=== PATIENT | female | born 1970 | race Caucasian/White ===

== ENCOUNTER 2018-10-28 17:59 | Emergency (ER) | payer BC ==
[~2018-10-28] VITALS: Ht 157.5 cm; Wt 69.9 kg
[2018-10-28 18:18] VITALS: BP 116/70
--- NOTE | 2018-10-28 18:22 | NUR ---
TO ER, FOR EVALUATION AND TREATMENT FOR POSSIBLE LICE INFESTATION
--- NOTE | 2018-10-28 20:11 | NUR ---
Patient discharged to home in stable condition. Written and verbal after care instructions given. Patient verbalizes understanding of instruction.Pt ambulatory with a steady gait. Homeless waiver signed by pt
== END 2018-10-28 20:12 | disposition home or self-care (01) ==
LOC: ER 18:08
DX: F15.10 Other stimulant abuse, uncomplicated (principal); F11.10 Opioid abuse, uncomplicated; F19.90 Other psychoactive substance use, unspecified, uncomplicated; F22 Delusional disorders; F41.9 Anxiety disorder, unspecified; F32.9 Major depressive disorder, single episode, unspecified; Z59.0 Homelessness

== ENCOUNTER 2019-12-16 16:48 | Emergency (ER) | payer BC ==
[~2019-12-16] VITALS: Ht 157.5 cm; Wt 49.9 kg
--- NOTE | 2019-12-16 17:01 | NUR ---
PT BIBA C/O COUGH W/ CONGESTION AND FEVER SINCE FRIDAY. 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 PT AAOX4, RESPIRATIONS EVEN AND UNLABORED ON RA W/ AND NOTED. PT CONNECTED TO THE MONITOR AND POX
--- NOTE | 2019-12-16 17:22 | NUR ---
XRAY AT BEDSIDE
[2019-12-16] MEDS ORDERED: ACETAMINOPHEN ES 500 MG TABLET ONE (17:27)
[2019-12-16] MEDS: IV NS 0.9% 1,000 ML BAG IV ONE (17:30)
[2019-12-16] MEDS: ACETAMINOPHEN ES 500 MG TABLET PO ONE (17:37)
--- NOTE | 2019-12-16 17:37 | NUR ---
MEDICAL UNDERWRITER AT BEDSIDE FOR BLOOD DRAW
--- NOTE | 2019-12-16 17:40 | NUR ---
PT UNABLE TO PROVIDE URINE AT THIS TIME. MADE AWARE
[2019-12-16 18:11] LABS: ALANINE AMINOTRANSFERASE 15 U/L (12-78); ALBUMIN 3.7 g/dL (3.4-5.0); ALCOHOL, BLOOD < 3 mg/dL (0-0); ALKALINE PHOSPHATASE 172 U/L (46-116); ASPARTATE AMINOTRANSFERASE 20 U/L (15-37); BILIRUBIN,DIRECT 0.2 mg/dL (0.0-0.2); BILIRUBIN,TOTAL 1.1 mg/dL (0.2-1.0); CALCIUM, SERUM 9.8 mg/dL (8.5-10.1); CARBON DIOXIDE 26 mmol/L (21-32); CHLORIDE 100 mmol/L (98-107); CREATININE 0.8 mg/dL (0.6-1.3); GLUCOSE 109 mg/dL (74-106); POTASSIUM 4.6 mmol/L (3.5-5.1); SODIUM SERUM 138 mmol/L (136-145); TOTAL PROTEIN, SERUM 9.6 g/dL (6.4-8.2); UREA NITROGEN, BLOOD 21 mg/dL (7-18)
[2019-12-16 18:37] LABS: BASOPHILS % (AUTO) 0.3 % (0.0-2.0); EOSINOPHILS % (AUTO) 0.3 % (0.0-6.0); HEMATOCRIT 36 % (33-45); HEMOGLOBIN 11.1 g/dL (11.5-14.8); LYMPHOCYTES # (AUTO) 0.8 /CMM (0.8-4.8); MEAN CORPUSCULAR HGB CONC 31 g/dl (31.0-36.0); MEAN CORPUSCULAR VOLUME 80 fL (82-100); MONOCYTES # (AUTO) 0.7 /CMM (0.1-1.30); MONOCYTES % (AUTO) 5.4 % (2.0-12.0); NEUTROPHILS # (AUTO) 11.2 /CMM (1.8-8.9); PLATELET COUNT (AUTO) 258 /CMM (150-450); RED BLOOD CELL COUNT(AUTO) 4.48 MIL/uL (4.0-5.2); WHITE BLOOD COUNT (AUTO) 12.7 K/uL (4.3-11.0)
[2019-12-16 19:36] VITALS: BP 127/84
--- NOTE | 2019-12-16 19:36 | NUR ---
Patient discharged to home in stable condition. Written and verbal after care instructions given. Patient verbalizes understanding of instruction.IV removed. Catheter intact and site benign. Pressure and 4x4 applied to site. No bleeding noted.
== END 2019-12-16 19:36 | disposition home or self-care (01) ==
LOC: ER 16:53
DX: B37.0 Candidal stomatitis (principal); F19.10 Other psychoactive substance abuse, uncomplicated; F41.9 Anxiety disorder, unspecified; F32.9 Major depressive disorder, single episode, unspecified; F17.200 Nicotine dependence, unspecified, uncomplicated
CPT/HCPCS: 71045; 80048; 80076; 80307; 85025; 96360; 99284; J7030; 36415; G0480

== ENCOUNTER 2019-12-17 16:27 | Emergency (ER) | payer BC ==
[~2019-12-17] VITALS: Ht 157.5 cm; Wt 49.9 kg
[2019-12-17 16:41] VITALS: BP 115/64
[2019-12-17] MEDS ORDERED: ACETAMINOPHEN 325 MG TABLET PO ONE (17:00)
[2019-12-17] MEDS ORDERED: IV NS 0.9% 1,000 ML BAG IV ONE (17:00)
[2019-12-17] MEDS ORDERED: LORAZEPAM INJ 2 MG/ML VIAL IV ONE (17:00)
--- NOTE | 2019-12-17 17:21 | NUR ---
PT REFUSED ANY TREATMENT. PT SIGNED AMA FORM. PAGE LEWIS EXPLAINED ALL THE RISKS TO PT BY SIGNING AMA FORM. PT ACKNOWLEDGED WITH VERBAL UNDERSTANDING.
== END 2019-12-17 17:23 | disposition left against medical advice (07) ==
LOC: ER 16:31
DX: R50.9 Fever, unspecified (principal); R53.1 Weakness; F19.10 Other psychoactive substance abuse, uncomplicated; F41.9 Anxiety disorder, unspecified; F32.9 Major depressive disorder, single episode, unspecified

== ENCOUNTER 2019-12-18 12:19 | Inpatient (IN) | payer BC ==
[~2019-12-18] VITALS: Ht 167.6 cm; Wt 52.6 kg
[2019-12-18] VITALS (8 sets, daily range): BP systolic 109–127; BP diastolic 61–95
--- NOTE | 2019-12-18 12:19 | NUR ---
PT BIBRA FROM THE STREET C/O GEN WEAKNESS, PT IS AAOX4, NOT IN RESPIRATORY DISTRESS, V/S STABLE, KEPT RESTED AND COMFORTABLE. WILL CONTINUE TO MONITOR.
--- NOTE | 2019-12-18 12:25 | NUR ---
ER BED 15 PT CAME TO ER WITH CHEIF COMPLAINT OF GENERAL WEAKNESS, STATES THAT SHE HAS NOT EATED FOR DAYS. PT AWAITING TO BE SEEN BY
[2019-12-18] MEDS ORDERED: IV NS 0.9% 1,000 ML BAG IV ONE ×2 (12:30→14:30)
--- NOTE | 2019-12-18 13:00 | NUR ---
IV ACCESS IV ACCESS PLACED ON L AXILLARY AREA G24. INTACTA AND PATENT. FLUSHING WELL.
[2019-12-18 13:34] LABS: BASOPHILS # (AUTO) 0.1 /CMM (0.0-0.2); BASOPHILS % (AUTO) 0.3 % (0.0-2.0); EOSINOPHILS % (AUTO) 0.1 % (0.0-6.0); HEMATOCRIT 36 % (33-45); HEMOGLOBIN 11.5 g/dL (11.5-14.8); LYMPHOCYTES # (AUTO) 1.1 /CMM (0.8-4.8); LYMPHOCYTES % (AUTO) 4.2 % (20.0-44.0); MEAN CORPUSCULAR HGB CONC 31 g/dl (31.0-36.0); MEAN CORPUSCULAR VOLUME 78 fL (82-100); MONOCYTES # (AUTO) 1.2 /CMM (0.1-1.30); MONOCYTES % (AUTO) 4.5 % (2.0-12.0); NEUTROPHILS # (AUTO) 23.9 /CMM (1.8-8.9); NEUTROPHILS % (AUTO) 90.9 % (43.0-81.0); PLATELET COUNT (AUTO) 302 /CMM (150-450); RED BLOOD CELL COUNT(AUTO) 4.69 MIL/uL (4.0-5.2); WHITE BLOOD COUNT (AUTO) 26.3 K/uL (4.3-11.0)
[2019-12-18 13:52] LABS: THYROID STIMULATING HORMONE 0.304 uIU/mL (0.358-3.74)
[2019-12-18] MEDS ORDERED: CEFTRIAXONE 1GM BAG (ER ONLY) 1 GM/50 ML PIGGYBACK IV ONE (14:00)
[2019-12-18] MEDS ORDERED: AZITHROMYCIN 250 MG TABLET PO ONE (14:00)
[2019-12-18 14:03] LABS: CALCIUM, SERUM 9.2 mg/dL (8.5-10.1); CREATININE 0.6 mg/dL (0.6-1.3); POTASSIUM 3.6 mmol/L (3.5-5.1)
[2019-12-18] MEDS ORDERED: CEFTRIAXONE 1 G VIAL ONE (14:06)
[2019-12-18] MEDS ORDERED: AZITHROMYCIN 250 MG TABLET ONE (14:06)
[2019-12-18] MEDS ORDERED: CEFTRIAXONE 1GM BAG (ER ONLY) 50 ML IV ONE (14:07)
[2019-12-18 14:08] LABS: ALBUMIN 2.7 g/dL (3.4-5.0); BILIRUBIN,DIRECT 0.2 mg/dL (0.0-0.2); BILIRUBIN,TOTAL 0.9 mg/dL (0.2-1.0); TOTAL PROTEIN, SERUM 8.2 g/dL (6.4-8.2)
[2019-12-18 14:09] LABS: MAGNESIUM 2.2 mg/dL (1.8-2.4)
[2019-12-18] MEDS ORDERED: IOHEXOL-300 100 ML VIAL IV ONE (14:12)
[2019-12-18] MEDS ORDERED: IV NS 0.9% 250 ML IV ONE (14:12)
--- NOTE | 2019-12-18 14:13 | NUR ---
PT IS WHEELED TO CT SCAN VIA [facility].
--- NOTE | 2019-12-18 14:40 | NUR ---
MOVE PACKET TURNED IN.
--- NOTE | 2019-12-18 14:43 | NUR ---
POINT OF CONTACT FOR CM TAT. NO ANSWER LEFT MESSAGE.
--- NOTE | 2019-12-18 15:01 | NUR ---
NURSING SUP GAVE ICU BED 256.
[2019-12-18 15:05] LABS: BILIRUBIN,URINE MODERATE (NEGATIVE); BLOOD, URINE Trace-intact Ery/uL (NEGATIVE); COLOR,URINE Yellow (YELLOW); KETONES,URINE >=160 (NEGATIVE); LEUKOCYTE ESTERASE ,URINE Negative (NEGATIVE); NITRITE, URINE Negative (NEGATIVE); PROTEIN,URINE 30 mg/dl (NEGATIVE); UGLUCOSE Negative (NEGATIVE)
[2019-12-18 15:12] LABS: APPEARANCE,URINE SLIGHTLY HAZY (CLEAR)
[2019-12-18 15:13] LABS: BACTERIA,URINE Few /HPF (None Seen); MUCUS,URINE Few /LPF (None Seen); SQUAMOUS EPITHELIAL CELL,UR Few /HPF (None Seen)
--- NOTE | 2019-12-18 15:43 | NUR ---
[facility] CALLED BACK AND REQUESTED CLINICAL INFORMATION.
--- NOTE | 2019-12-18 16:27 | NUR ---
CLINICALS FAXED TO TAT. NO PEER TO PEER SET UP. NO TRANSPORT ARRANGED. WAITING FOR CALL BACK.
--- NOTE | 2019-12-18 16:50 | NUR ---
COMMUNICATED WITH ADMITTING IF CM TAT HAD CALLED BACK. NO CALL RECIEVED PUSHED ADMISSION. SHIFT LAB TECHNICIAN AND HOUSE SUP AWARE.
--- NOTE | 2019-12-18 17:10 | NUR ---
NURSE MIDWIFE/CLINICAL INSTRUCTOR NOTE RECEIVED REPORT FROM ER NURSE WING, PER REPORT PATIENT WAS GIVEN 2LNS AND ABX ROCEPHIN AND ZITHROMAX. PENDING MIDLINE PLACEMENT.
--- NOTE | 2019-12-18 17:15 | NUR ---
REPORT GIVEN TO NICOLE JAMA OF ICU
[2019-12-18] MEDS: IV NS 0.9% 1,000 ML IV PRN (17:24)
--- NOTE | 2019-12-18 17:25 | NUR ---
MIDLINE NURSE AT BEDSIDE
[2019-12-18] MEDS ORDERED: METHADONE HCL 10 MG TABLET PO PRN (17:30)
[2019-12-18] MEDS ORDERED: Z GUARD REMEDY 2 OZ OINT TP PRN (17:30)
[2019-12-18] MEDS ORDERED: ACETAMINOPHEN 325 MG TABLET PO PRN (17:30)
[2019-12-18] MEDS ORDERED: ONDANSETRON HCL/PF 4 MG/2 ML VIAL IVP PRN (17:30)
[2019-12-18] MEDS ORDERED: MAGNESIUM HYDROXIDE 30 ML UDC PO PRN (17:30)
[2019-12-18] MEDS ORDERED: ZOLPIDEM TARTRATE 5 MG TABLET PO PRN (17:30)
--- NOTE | 2019-12-18 17:30 | NUR ---
NURSING TECH INITIAL NOTE RECEIVED PATIENT WEAK, STATES SHE CAN'T WALK AT THIS TIME. PATIENT IS ALERT AND ORIENTEDX4, ABLE TO MAKE NEEDS KNOWN. PER PATIENT SHE IS HOMELESS AND SHE HAS A MOTHER. STATES SHE HAS NOT EATEN IN THE PAST 6 DAYS AND SHE IS HAVING WITHDRAWALS FROM HEROINE USE. STATES SHE USED HEROINE LATE LAST NIGHT AT 9PM AND SHE USES HEROINE 3 TIMES A DAY. SHE IS A PACK A DAY SMOKER, BUT STOPPED SMOKING 6 DAYS AGO. PATIENT DENIES SOB. ON 2LPMO2 VIA NC. ON TELE MONITOR SR. DENIES PAIN OR DISCOMFORT AT THIS TIME. SKIN WARM AND DRY TO TOUCH. ORIENTED PATIENT TO ROOM AND CALL LIGHT SYSTEM. PATIENT VERBALIZED UNDERSTANDING. WILL CONTINUE TO MONITOR. SEEN AND EXAMINED BY GEORGE.
--- NOTE | 2019-12-18 17:41 | NUR ---
HOT PLATE PLYWOOD PRESS OFFBEARER NOTE PATIENT EATING DINNER, REQUESTED TO HAVE FOOD TO BE MORE PUREED.
--- NOTE | 2019-12-18 18:30 | NUR ---
MONITORING AND EVALUATION ADVISOR NOTE CLARIFIED WITH GEORGE ZITHROMAX ORDER, INFORMED HER PATIENT RECEIVED ZITHROMAX AND ROCHEPHIN IN ER. PER GEORGE START ZITHROMAX TOMORROW.
[2019-12-18] MEDS ORDERED: AZITHROMYCIN 250 MG TABLET PO SCH (19:00)
[2019-12-18] MEDS ORDERED: Z GUARD REMEDY 4 OZ OINT TP PRN (19:00)
[2019-12-18] MEDS: DOXYCYCLINE HYCLATE (100 MG) 100 MG TABLET PO SCH (20:29)
[2019-12-18] MEDS: CEFEPIME 2 GM in IV D5W 100 ML IV SCH (20:29)
--- NOTE | 2019-12-18 20:49 | NUR ---
STONE SETTER APPRENTICE NOTES ATTEMPTED TO GIVE PT CRUSHED VIBRAMYCIN IN APPLESAUCE BC SHE STATED THAT SHE IS UNABLE TO SWALLOW PILLS. PT WAS UNABLE TO SWALLOW APPLESAUCE. WILL PUT IN AN ORDER FOR SWALLOW EVAL.
[2019-12-19] VITALS (25 sets, daily range): BP systolic 116–135; BP diastolic 67–82
[2019-12-19] MEDS: CEFEPIME 2 GM in IV D5W 100 ML IV SCH (04:49)
[2019-12-19] MEDS: IV NS 0.9% 1,000 ML IV PRN ×2 (04:50→20:50)
[2019-12-19 04:52] LABS: BASOPHILS % (AUTO) 0.1 % (0.0-2.0); EOSINOPHILS % (AUTO) 0.6 % (0.0-6.0); HEMATOCRIT 34 % (33-45); HEMOGLOBIN 10.5 g/dL (11.5-14.8); LYMPHOCYTES # (AUTO) 1.3 /CMM (0.8-4.8); LYMPHOCYTES % (AUTO) 5.2 % (20.0-44.0); MEAN CORPUSCULAR HGB CONC 31 g/dl (31.0-36.0); MEAN CORPUSCULAR VOLUME 79 fL (82-100); MONOCYTES # (AUTO) 0.8 /CMM (0.1-1.30); MONOCYTES % (AUTO) 3.2 % (2.0-12.0); NEUTROPHILS # (AUTO) 21.8 /CMM (1.8-8.9); NEUTROPHILS % (AUTO) 90.9 % (43.0-81.0); PLATELET COUNT (AUTO) 293 /CMM (150-450); RED BLOOD CELL COUNT(AUTO) 4.28 MIL/uL (4.0-5.2)
[2019-12-19 05:25] LABS: CALCIUM, SERUM 8.4 mg/dL (8.5-10.1); CREATININE 0.6 mg/dL (0.6-1.3); PHOSPHORUS 2.1 mg/dL (2.5-4.9); POTASSIUM 3.3 mmol/L (3.5-5.1)
--- NOTE | 2019-12-19 06:34 | NUR ---
RN NOTES PT IS CURRENTLY SLEEPING BUT EASILY TO AROUSES. HOB ELEVATED AND HAS NO S/S OF RESPIRATORY DISTRESS. SHE HAS BEEN LETHARGIC AND HAVING TROUBLE SWALLOWING WATER. Addendum: 12/19/19 at 0647 by SHY AVILA RN PT IS CURRENTLY SLEEPING BUT EASY TO AROUSE. HOB IS ELEVATED AND SHE IS ON 2 L NASAL CANNULA WITH AN O2 SATURATION OF 100% PT IS HAVING TROUBLE SWALLOWING WATER, ASPIRATION PRECAUTIONS TAKEN. SHE IS NSR 70 ON THE BEDSIDE MONITOR. IRIZARRY CATHETER IN PLACE AND DRAINING BUT NOW WITH MARKED DECREES IN OUTPUT. MIDLINE IS PATENT AND WITHOUT COMPLICATIONS WHILE INFUSING NS AT 75ML/HR. BED IS IN LOWEST AND LOCKED POSITION WITH BED ALARM ACTIVATED AND CALL NELSON WITHIN REACH. WILL ENDORSE TO MORNING RN FOR SHARI.
--- NOTE | 2019-12-19 07:00 | NUR ---
TRAFFIC LIEUTENANT OPENING NOTES RECEIVED PT ASLEEP BUT EASILY AROUSABLE. A/O X 2. NC 2L AT 99% O2 SATURATION. NO ACUTE RESPIRATORY DISTRESS NOTED AT THIS TIME. TELE MONITORING SHOWING SR AT 70S. MIDLINE 18G, NS AT 75ML/HR. IRIZARRY CATH IN PLACE, DRAINING YELLOW URINE. NO PAIN NOTED OR REPORTED AT THE MOMENT. SAFETY MEASURES OBSERVED. CALL LIGHT WITHIN REACH, BED LOCKED AND AT LOWEST POSITION.
--- NOTE | 2019-12-19 08:23 | NUR ---
RIP MACHINE OPERATOR NOTES INFORMED MS. GUAJARDO REGARDING PT COMPLAINS OF PAIN BUT UNABLE TO SWALLOW. REQUESTED IV PUSH PAIN MEDS. ACKNOWLEDGED INFO AND WILL PUT IN ORDERS
[2019-12-19] MEDS ORDERED: LEVOFLOXACIN 500 MG /D5W 100ML 500 MG in PREMIX 1 EA IV SCH (09:00)
[2019-12-19 09:41] LABS: C-REACTIVE PROTEIN 31.8 mg/dL (0.0-0.9)
[2019-12-19] MEDS: NYSTATIN (PYXIS) 500,000 UNIT/5 ML ORAL.SUSP PO SCH ×3 (09:52→16:34)
[2019-12-19] MEDS: POTASSIUM CL. PREMIX PERIPHER. 50 ML IV SCH ×4 (09:53→14:33)
[2019-12-19] MEDS: DOXYCYCLINE HYCLATE (100 MG) 100 MG TABLET PO SCH (10:00)
--- NOTE | 2019-12-19 10:25 | NUR ---
RN NOTE: Informed Nera, DECORATOR LIGHTING FIXTURES about patient not tolerating PO medications. Doxycycline 100mg tab scheduled was not administered due to this reason. Order given to convert to IV, noted and carried out.
[2019-12-19] MEDS ORDERED: Sodium Phosphate 30 MMOL in IV NS 0.9% 250 ML IV SCH (10:30)
[2019-12-19] MEDS: IPRATROPIUM NEB FS 0.5 MG/2.5 ML AMPUL.NEB NEB SCH ×4 (11:30→23:27)
[2019-12-19] MEDS: ACETYLCYSTEINE 10% SOLN 400 MG/4 ML VIAL NEB SCH ×3 (11:30→23:27)
[2019-12-19] MEDS: GUAIFENESIN LA 600 MG TABLET.SA PO SCH ×2 (11:30→20:07)
[2019-12-19] MEDS: ALBUTEROL FS 2.5 MG/0.5 ML VIAL.NEB NEB SCH ×4 (11:30→23:27)
--- NOTE | 2019-12-19 11:30 | NUR ---
RT PER COVID 19 PROTOCOL. AEROSOL BREATHING TX WILL NOT BE GIVEN TO RULE OUT/POSITIVE PATIENTS. PT IS CURRENTLY R/O. NO SOB OR RESP DISTRESS NOTED. WILL CONTINUE TO MONITOR. RN AWARE
[2019-12-19] MEDS: DOXYCYCLINE 100 MG in IV D5W 100 ML IV SCH ×2 (12:02→20:36)
--- NOTE | 2019-12-19 12:11 | NUR ---
RN NOTE: Patient did not tolerated crushed acetaminophen 650mg. Medication was spit out and not taken. Swallowing difficulty apparent. NPO for now. Will f/u with Kaitlynn Brown DNP for Iv pain medication
--- NOTE | 2019-12-19 12:35 | NUR ---
TRAY WORKER NOTES RECEIVED ORDER FROM LINDA GUAJARDO, IV MORPHINE 2MG PRN Q4H. NOTED AND CARRIED OUT
[2019-12-19] MEDS: MORPHINE SULFATE INJ 2 MG/ML DISP.SYRIN IV PRN ×3 (13:19→20:51)
[2019-12-19] MEDS ORDERED: AZITHROMYCIN 250 MG TABLET PO SCH (14:00)
--- NOTE | 2019-12-19 18:24 | NUR ---
rn note: + MRSA on R nare resulted. informed Kaitlynn Brown, OSWALD and order for Bactroban ointment ordered. Noted and carried out
--- NOTE | 2019-12-19 18:30 | NUR ---
rn note: Per merary werner DNP. continue all active medications upon discharge.
--- NOTE | 2019-12-19 18:46 | NUR ---
OYSTER PREPARER CLOSING NOTES PT IS SLEEPING BUT EASY TO AROUSE. NO ACUTE RESPIRATORY DISTRESS NOTED AT THIS TIME. ALL MEDS GIVEN PER ORDER. NO PAIN NOTED AT THIS TIME. SAFETY MEASURES OBSERVED. CALL LIGHT WITHIN REACH, BED LOCKED AND AT LOWEST POSITION. HOB SLIGHTLY ELEVATED PER PT COMFORT. WILL ENDORSE TO ONCOMING SHIFT FOR SHARI
--- NOTE | 2019-12-19 19:46 | NUR ---
RN CLOSING + DISCHARGE NOTE: Patient remains in bed. Alert, awake and oriented x4. Able to make needs known. On cont. o2 via NC @ 2lpm saturation at 99%, no SOB and not in respiratory distress. Able to cough, unable to fully expectorate small, thick secretions and needs help via suctioning. Isolation precaution for MRSA R nare and to r/o covid in place. Pain reported throughout shift and managed with current IV Push medication. Patient with Dacosta catheter and in place, draining yellow urine. Iv site clean, dry, patent and intact. Infusion of Ns @ 75mls/hr being tolerated well. Patient still on NPO due to being unable to tolerated previous diet, swallow eval was ordered but still pending to be done. Patient for transfer to [facility] later with pickle water pump operator at 2000 per report. Discharge process was done. Forms were not brought in patient's room to be signed due to current isolation, Belongings were checked and patient acknowledged everything was in place, Discharge instructions given and patient verbalized understanding. Process was witnessed by EVITA Fonseca. Unable to contact Mother listed on Face sheet and number was disconnect, Voicemail cannot be left. Endorsed to EVITA Robertson for SHARI and for endorsement to receiving facility.
--- NOTE | 2019-12-19 20:04 | NUR ---
GAS LINE INSTALLER SUPERVISOR NOTES ATTEMPTED TO GIVE REPORT TO NURSE MENENDEZ AT [facility] [phone] FOR ROOM 5564. PER NURSE MENENDEZ, SINCE PATIENT IS A PUI, SHE MUST DOUBLE CHECK WITH HER CONSTRUCTION REP. AWAITING CALL FROM SHON REGARDING TRANSFER STATUS
--- NOTE | 2019-12-19 20:29 | NUR ---
SIZE CUTTER NOTES COVID RAPID ANTIGEN TEST RESULTS FAXED TO [facility] TO NURSE SHON PER REQUEST. PER SHON, SHE WILL DISCUSS WITH HER FAMILY LAW PARALEGAL REGARDING WHERE THIS PATIENT WILL BE ADMITTED TO AT [facility]
--- NOTE | 2019-12-19 20:31 | NUR ---
OUTSIDE SALES NOTES [facility] TRANSPORT PLACED ON WILL CALL RN IS STILL WAITING FOR CONFIRMATION FROM [facility] REGARDING WHICH ROOM PATIENT WILL BE TRANSPORTED TO
[2019-12-19] MEDS ORDERED: MUPIROCIN OINT 2% 22 GM TUBE NS SCH (21:00)
--- NOTE | 2019-12-19 21:12 | NUR ---
PRODUCTION ASSEMBLY SUPERVISOR NOTES RECEIVED CALL FROM NURSE MENENDEZ AT [facility]. PER SHON, ALL PAPERWORK HAS BEEN CLEARED AND PATIENT WILL BE GOING TO ROOM 5564. CALLED AND SPOKE TO [facility], TRANSPORT WILL ARCHITECTURAL PROJECT MANAGER PATIENT AT 2330 THIS EVENING. SHON AT [facility] MADE AWARE OF NEW ARCHITECTURAL PROJECT MANAGER TIME. CHARGE NURSE CODY MADE AWARE OF NEW TIME FOR PICKUP AND TRANSPORT
[2019-12-20] VITALS: BP 121/74
--- NOTE | 2019-12-20 00:30 | NUR ---
NATIONAL COVERAGE SPECIALIST NOTES EMT ROJAS AND EMT CANDICE FROM [facility] HERE FOR PICKUP/TRANSPORT TO [facility]. BEDSIDE REPORT AND ALL PERTINENT INFORMATION/TRANSFER PACKET GIVEN TO EMT STAFF. PATIENT LEFT [facility] ICU VIA GURNEY IN STABLE CONDITION, REPORT ALREADY GIVEN TO NURSE MENENDEZ AT [facility]
[2019-12-22 04:06] LABS: HIV SCRN 4G wRFX Non Reactive (Non Reactive)
== END 2019-12-20 00:30 | disposition short-term general hospital (02) | DRG 139 ==
LOC: ER 12:20 → ICU 17:16
PROVIDERS: ADMIT Nurse Practitioner Acute Care; ATTEND Nurse Practitioner Acute Care
PROC: 05HA33Z Insertion of Infusion Device into Left Brachial Vein, Percutaneous Approach (ICD-10-PCS; principal; 2019-12-18)
DX: J15.9 Unspecified bacterial pneumonia (principal); N39.0 Urinary tract infection, site not specified; B37.0 Candidal stomatitis; F11.10 Opioid abuse, uncomplicated; F17.210 Nicotine dependence, cigarettes, uncomplicated; N28.1 Cyst of kidney, acquired; Z59.0 Homelessness; Z22.322 Carrier or suspected carrier of Methicillin resistant Staphylococcus aureus; F41.9 Anxiety disorder, unspecified; F32.9 Major depressive disorder, single episode, unspecified; R79.89 Other specified abnormal findings of blood chemistry; K59.00 Constipation, unspecified
CPT/HCPCS: 36415; 71045-TC; 80048-TC; 80061-TC; 80076-TC; 81000-TC; 82728-TC; 83605-TC; 83615-TC; 83690-TC; 83735-TC; 84100-TC; 84439-TC; 84443-TC; 85025-TC; 86140-TC; 87040-TC; 87081-TC; 87086-TC; A4216; A4623; A9563; C9803-CS; G0378; J0692; J0696; J1956; J2270; J3480; J3490; J7030; J7050; J7060; Q9967; U0003-CS

== ENCOUNTER 2021-09-24 10:58 | Inpatient (IN) | payer BC, MEDICAID ==
[~2021-09-24] VITALS: Ht 162.6 cm; Wt 52.2 kg
--- NOTE | 2021-09-24 11:00 | NUR ---
BIBS RA 60 FROM A [facility] HOME C/O R SHOULDER ABSCESS AND 10/10 PAIN ASCESS OCCURRED X1WEEK WORSE X2DAYS. PLACED ON BED, AAOX4, IN PAIN
--- NOTE | 2021-09-24 11:06 | NUR ---
Dr Shukla at for eval.
--- NOTE | 2021-09-24 11:20 | NUR ---
BLOOD DRAWN, SWAB FOR COVID19 SENT TO LAB
[2021-09-24] MEDS ORDERED: MORPHINE SULFATE INJ 2 MG/ML DISP.SYRIN IV ONE (11:30)
[2021-09-24] MEDS ORDERED: VANCOMYCIN 1 GM in IV D5W 250 ML IV ONE (11:30)
[2021-09-24] MEDS ORDERED: PIPERACILLIN /TAZOBACTAM 3.375 G in IV D5W 50 ML IV ONE (11:30)
[2021-09-24 11:39] LABS: BASOPHILS # (AUTO) 0.2 K/uL (0.0-0.2); BASOPHILS % (AUTO) 0.4 % (0.0-2.0); EOSINOPHILS % (AUTO) 0.1 % (0.0-6.0); HEMATOCRIT 49 % (33-45); HEMOGLOBIN 15.5 g/dL (11.5-14.8); LYMPHOCYTES # (AUTO) 1.6 K/uL (0.8-4.8); LYMPHOCYTES % (AUTO) 4.3 % (20.0-44.0); MEAN CORPUSCULAR HGB CONC 32 g/dl (31.0-36.0); MEAN CORPUSCULAR VOLUME 68 fL (82-100); MONOCYTES # (AUTO) 1.6 K/uL (0.1-1.30); MONOCYTES % (AUTO) 4.4 % (2.0-12.0); NEUTROPHILS # (AUTO) 33.4 K/uL (1.8-8.9); NEUTROPHILS % (AUTO) 90.8 % (43.0-81.0); PLATELET COUNT (AUTO) 667 K/uL (150-450); RED BLOOD CELL COUNT(AUTO) 7.27 MIL/uL (4.0-5.2)
[2021-09-24] MEDS ORDERED: MORPHINE SULFATE INJ 4 MG/ML DISP.SYRIN ONE (11:41)
--- NOTE | 2021-09-24 11:49 | NUR ---
PATIENT TAKEN TO CT FOR R UPPER EXTREMITY
[2021-09-24 11:52] LABS: WHITE BLOOD COUNT (AUTO) 36.7 K/uL (4.3-11.0)
[2021-09-24 12:25] LABS: GLUCOSE 179 mg/dL (74-106); SODIUM SERUM 129 mmol/L (136-145)
[2021-09-24 12:30] LABS: BAND % (MANUAL) 2 % (0.0-5.0); LYMPHOCYTES % (MANUAL) 8 % (16-48); MONOCYTES % (MANUAL) 4 % (0-11.0); NEUTROPHILS % (MANUAL) 86 (42-76)
[2021-09-24 12:32] LABS: ALANINE AMINOTRANSFERASE 23 U/L (12-78); ALKALINE PHOSPHATASE 191 U/L (46-116); ASPARTATE AMINOTRANSFERASE 69 U/L (15-37); BILIRUBIN,DIRECT 0.2 mg/dL (0.0-0.2); BILIRUBIN,TOTAL 0.9 mg/dL (0.2-1.0); CALCIUM, SERUM 9.8 mg/dL (8.5-10.1); CARBON DIOXIDE 25 mmol/L (21-32); POTASSIUM 4.7 mmol/L (3.5-5.1)
[2021-09-24 12:42] LABS: CHLORIDE 92 mmol/L (98-107); CREATININE 1.8 mg/dL (0.6-1.3); UREA NITROGEN, BLOOD 27 mg/dL (7-18)
--- NOTE | 2021-09-24 13:00 | NUR ---
CALLED NURSING SUP REGARDING PT BED
[2021-09-24] MEDS: IV NS 0.9% 1,000 ML BAG IV ONE (13:15)
[2021-09-24] MEDS ORDERED: MAGNESIUM HYDROXIDE 30 ML UDC PO PRN (13:30)
[2021-09-24] MEDS ORDERED: IV NS 0.9% 1,000 ML IV PRN (13:30)
[2021-09-24] MEDS ORDERED: MORPHINE SULFATE INJ 2 MG/ML DISP.SYRIN IV PRN (13:30)
[2021-09-24] MEDS ORDERED: HYDROCODONE/APAP 5/325MG TABLET PO PRN (13:30)
[2021-09-24] MEDS ORDERED: ONDANSETRON HCL/PF 4 MG/2 ML VIAL IVP PRN (13:30)
[2021-09-24] MEDS ORDERED: ACETAMINOPHEN 325 MG TABLET PO PRN (13:30)
[2021-09-24] MEDS ORDERED: Z GUARD REMEDY 4 OZ OINT TP PRN (13:30)
[2021-09-24] MEDS ORDERED: MAG HYDROX/AL HYDROX/SIMETH 30 ML UDC PO PRN (13:30)
--- NOTE | 2021-09-24 14:20 | NUR ---
BED GIVEN 321-2
[2021-09-24] MEDS ORDERED: CLINDAMYCIN 900 MG in IV D5W 50 ML IV ONE (14:30)
[2021-09-24] MEDS ORDERED: CLINDAMYCIN 900 MG in IV D5W 50 ML IV SCH (14:30)
--- NOTE | 2021-09-24 14:49 | NUR ---
REPORT GIVEN TO MAINOR JAMA FOR SHARI
[2021-09-24] MEDS: ZOSYN IVPB 3.375 G in IV D5W 50ml IV SCH ×2 (17:33→23:56)
[2021-09-24] MEDS ORDERED: PIPERACILLIN /TAZOBACTAM 4.5 G in IV D5W 50 ML IV SCH (18:00)
[2021-09-24] MEDS ORDERED: FENTANYL PF 100MCG/2ML AMPUL ONE ×2 (18:46→20:01)
[2021-09-24] MEDS ORDERED: MIDAZOLAM HCL 2 MG/2ML VIAL ONE (18:46)
--- NOTE | 2021-09-24 19:15 | NUR ---
MS RN OPENING NOTES: PATIENT STILL IN OR AT THIS TIME.
--- NOTE | 2021-09-24 20:05 | NUR ---
END OF SHIFT REPORT Received patient via [employer] at 1500. Patient is A/ Addendum: 09/24/21 at 2009 by KRISSY VILLALOBOS RN CONT: Patient is A/O x 4, able to make needs known. Stable on room air. Patient oriented to room and how to use the call light. IV access on LAC #20 and RAUL #20, hooked NS at 75 ml/hr. Skin assessment done, photos of wound taken and placed in chart. Patient refused to be turned to check back for skin assessment, states she doesn't have any wounds on the back. Patient complains of RAIN pain 10/10 in pain scale. PRN Morphine given at 1521. VS as follows: BP 112/80; HR 66; RR 19; Temp 97.4; SPO@ 99%. Consents for surgery signed by patient. Patient brought down to OR at 1845 for I&D of RAIN with serial debridement. Endorsed to night nurse nurse.
[2021-09-24] MEDS ORDERED: HYDROMORPHONE 1 MG/1 ML DISP.SYRIN ONE (20:35)
[2021-09-24] MEDS ORDERED: PANTOPRAZOLE 40 MG VIAL IV SCH (22:00)
[2021-09-24 22:22] VITALS: BP 142/89
[2021-09-24] MEDS: IV LR 1000 ML 1,000 ML IV PRN (22:41)
[2021-09-24 23:22] VITALS: BP 132/91
[2021-09-24] MEDS: HYDROMORPHONE INJ 2 MG/ML DISP.SYRIN IV PRN (23:57)
[2021-09-25] MEDS ORDERED: VANCOMYCIN 500 MG in IV D5W 100 ML IV SCH ×2
[2021-09-25 00:22] VITALS: BP 130/89
[2021-09-25 01:22] VITALS: BP 121/69
[2021-09-25] MEDS: HYDROMORPHONE INJ 2 MG/ML DISP.SYRIN IV PRN ×3 (03:01→10:21)
[2021-09-25] MEDS: ZOSYN IVPB 3.375 G in IV D5W 50ml IV SCH (05:59)
[2021-09-25] MEDS: IV LR 1000 ML 1,000 ML IV PRN (07:05)
[2021-09-25] MEDS ORDERED: PANTOPRAZOLE 40 MG TABLET.DR PO SCH (07:30)
--- NOTE | 2021-09-25 07:30 | NUR ---
RN OPENING NOTES RECEIVED PATIENT IN BED, A/O X4. ON RA WITH EVEN AND UNLABORED BREATHING. LAC G#20 and RAUL G#20 INTACT AND PATENT WITH NS RUNNING @ 75ML/HR. PATIENT RECENTLY GIVEN PAIN MEDICATION. MINIMAL COMPLAINT OF SHOULDER PAIN AT THE MOMENT. BULK DRESSING IN PLACE TO R SHOULDER. SAFETY PRECAUTIONS IN PLACE. WILL CONTINUE TO MONITOR
[2021-09-25] MEDS ORDERED: GABAPENTIN 300 MG CAPSULE PO SCH (09:00)
[2021-09-25] MEDS ORDERED: ACETAMINOPHEN 325 MG TABLET PO SCH (09:00)
[2021-09-25] MEDS ORDERED: IBUPROFEN 400 MG TABLET PO SCH (09:00)
--- NOTE | 2021-09-25 09:19 | NUR ---
WOUND CARE CONSULT: PT REFUSED SKIN ASSESSMENT BUT RT SHOULDER SURGICAL DRESSING NOTED AND DRY LESION TO LEFT LATERAL KNEE. DEFER TO SURGEONS CURRENTLY ON CASE. WILL SEE PRN.
--- NOTE | 2021-09-25 10:15 | NUR ---
RN NOTES PATIENT SEEN DR IBARRA.
--- NOTE | 2021-09-25 10:25 | NUR ---
RN NOTES PATIENT INCREASINGLY BECOMING MORE RESTLESS AND AGITATED. REFUSING PAIN MEDICATION. WILL CONTINUE TO MONITOR
--- NOTE | 2021-09-25 10:35 | NUR ---
RN NOTES PATIENT REMOVED IV ACCESS.
--- NOTE | 2021-09-25 11:00 | NUR ---
RN NOTES RESPIRATIONS OF 28 BPM. PLACED ON 2L OF O2 VIA N/C WITH O2 SAT OF 97%.
--- NOTE | 2021-09-25 11:50 | NUR ---
RN NOTES CHARGE NURSE NOTIFIED OF PATIENT CHANGE IN CONDITION. TRIED TO NOTIFY DR IBARRA. LEFT MESSAGE FOR A CALL BACK.
--- NOTE | 2021-09-25 12:00 | NUR ---
RN NOTES PATIENT INCREASINGLY MORE RESTLESS IN BED. REFUSING MEDICATIONS. REMOVING OXYGEN.
[2021-09-25 12:06] VITALS: BP 81/60
--- NOTE | 2021-09-25 12:06 | NUR ---
RN NOTES RAPID RESPONSE INITIATED.
[2021-09-25 12:25] LABS: ABG BASE EXCESS -30.2 mmol/L; ABG OXYGEN SATURATION 99.5 % (92.0-98.5); ABG PCO2 17.2 mmHg (35.0-45.0); ABG PH 6.845 (7.350-7.450); AaDO2 394.6 mmHg; COHb 0.8 % (0.5-1.5); MetHb 0.6 % (0.0-1.5); O2Hb 98.1 % (94.0-97.0); SITE, ABG Left Femoral
--- NOTE | 2021-09-25 12:25 | NUR ---
RN NOTES ORDER TO TRANSFER TO HIGHER LEVEL OF CARE. PATIENT TRANSFERRED TO ICU BED 257-1.
--- NOTE | 2021-09-25 12:36 | NUR ---
RAPID RESPONSE CALLED AT 1206 ON 3W. ICU THERAPEUTIC DIETITIAN ARRIVED ON 3W PT WAS AGITATED, HAD PULLED OUT IV SITES, PULLING OXYGEN OFF. O2 SATS 84% ON NRB, BLOOD PRESSURE LOW BUT STABLE. ABG WAS DRAWN. PT WAS TRANSPORTED TO ICU BEFORE RESULTS RECEIVED. IN ICU ABG RESULTS SENT TO DR CASTORENA. DR CASTORENA CALLED WITH ORDERS. BEFORE ORDERS COULD BE ENTERED PT BECAME UNRESPONSIVE AND GUSTAVO COMER WAS CALLED AT 1236. SEE GUSTAVO COMER DOCUMENTATION.
[2021-09-25] MEDS ORDERED: TDAP [DIPH/PERTUSSIS/TET] 0.5 ML VIAL IM ONE (13:00)
[2021-09-25] MEDS ORDERED: CLINDAMYCIN IV RTU IN D5W 900 MG/50 ML PIGGYBACK IV SCH (13:00)
[2021-09-25] MEDS ORDERED: CALCIUM CHLORIDE 1,000 MG/10 ML DISP.SYRIN IV ONE (13:08)
[2021-09-25] MEDS ORDERED: SODIUM BICARBONATE SYR 50 MEQ/50 ML DISP.SYRIN IV ONE (13:08)
[2021-09-25] MEDS ORDERED: EPINEPHRINE (1:10,000) SYRINGE 1 MG/10 ML DISP.SYRIN IVP ONE (13:08)
--- NOTE | 2021-09-25 13:10 | NUR ---
RT PATIENT CODED IN ICU, CPR INITIATED. ER DOC ARRIVED PATIENT WAS INTUBATED WITH A 7.0 ETT SECURED AT 24CM AT THE LIP. POSITIVE CO2 DETECTOR COLOR CHANGE. BILATERAL CHEST RISE NOTED. ETT SECURED. CODE CONTINUED FOR SEVERAL ROUNDS UNTIL ER DOCTOR CALLED TIME OF .
--- NOTE | 2021-09-25 13:57 | NUR ---
RN NOTE RN FOUND, WHILE PERFORMING BELONGINGS REVIEW, 1 PILL, 1 PIPE USED FOR SMOKING RECREATIONAL DRUGS, 1 PONCHO WITH GREEN PLANT SUBSTANCE, ONE PINK SMALL CONTAINER WITH UNKNOWN BROWN POWER INSIDE. RN INFORMED SECURITY, SEQUESTERED ITEMS IN BIO BAG, SECURITY INFORMED RN THAT BELONGINGS WILL BE OBTAINED BY SECURITY.
--- NOTE | 2021-09-25 14:37 | NUR ---
SENIOR ELECTRONICS DESIGN ENGINEER CALLED BERNA[facility]TE DECKER [phone], LISTED NEXT OF KIN. SOMEONE ANSWERED THE PHONE, WHEN RN ASKED FOR EBRNADETTE THEY HUNG UP THE PHONE. DURING THE CODE THIS NUMBER WAS CALLED ALSO, THEY HUNG UP THEN ALSO. WILL CONSULT SW TO SEE IF THERE IS A NEXT OF KIN.
--- NOTE | 2021-09-25 16:01 | NUR ---
Net of Kin: FINA received consult for locating next of Kin. SW called patient's mother, Marga Nunez [phone], no answer of option to leave voicemail only a busy tone. FINA located a different number for Marga from 2015 admission, and left a voicemail. FINA also attempted to call the patient's from 2015 admission records, Wali Waller [phone] & [phone] and both numbers are disconnected. FINA notified nursing supervisor claims, Rosy. SW will be available as needed.
== END 2021-09-25 15:34 | DRG 710 ==
LOC: ER 10:59 → TRANSITION 13:41 → MED 14:20 → ICU 09-25 12:26
PROVIDERS: ATTEND Internal Medicine
PROC: 0KB70ZZ Excision of Right Upper Arm Muscle, Open Approach (ICD-10-PCS; principal; 2021-09-25)
PROC: 0BH17EZ Insertion of Endotracheal Airway into Trachea, Via Natural or Artificial Opening (ICD-10-PCS; 2021-09-25)
PROC: 5A2204Z Restoration of Cardiac Rhythm, Single (ICD-10-PCS; 2021-09-25)
DX: A41.9 Sepsis, unspecified organism (principal); J96.01 Acute respiratory failure with hypoxia; N17.0 Acute kidney failure with tubular necrosis; M72.6 Necrotizing fasciitis; A48.0 Gas gangrene; E44.1 Mild protein-calorie malnutrition; G93.41 Metabolic encephalopathy; R65.21 Severe sepsis with septic shock; E87.1 Hypo-osmolality and hyponatremia; L03.113 Cellulitis of right upper limb; Z20.822 Contact with and (suspected) exposure to COVID-19; F41.9 Anxiety disorder, unspecified; F32.9 Major depressive disorder, single episode, unspecified; Z59.00 Homelessness unspecified; E87.4 Mixed disorder of acid-base balance; E88.09 Other disorders of plasma-protein metabolism, not elsewhere classified; F11.20 Opioid dependence, uncomplicated; L02.413 Cutaneous abscess of right upper limb; M60.9 Myositis, unspecified; Z72.0 Tobacco use; B95.8 Unspecified staphylococcus as the cause of diseases classified elsewhere
CPT/HCPCS: 36415; 36600; 71045-TC; 73200-TC; 76770-TC; 80048-TC; 80076-TC; 82803-TC; 82962-TC; 83605-TC; 84484-TC; 84702-TC; 85025-TC; 85730-TC; 87040-TC; 87070-TC; 87075-TC; 92950-TC; A4217; A6253; C9113; C9803; G0378; J0171; J0330; J0690; J1170; J2250; J2270; J2405; J2543; J2704; J3010; J3370; J3490; J7030; J7050; J7060; J7120